=== PATIENT | male | born 1960 | race Caucasian/White ===

== ENCOUNTER → 2018-11-07 | Outpatient (CLI) | payer OTHER ==
[2018-11-07 10:36] LABS: Basophils % (A) 1 %; Eosinophils # (A) 0.1 k/uL (0-0.7); Eosinophils % (A) 2 %; HCT 40.6 % (39.0-53.0); HGB 12.8 gm/dL (13.0-17.5); Lymphocytes # (A) 1.3 k/uL (1.0-4.8); Lymphocytes % (A) 27 %; MCH 27.9 pg (25.0-35.0); MCHC 31.5 g/dL (31.0-37.0); MCV 88.6 fL (80.0-100.0); Mean Platelet Volume 8.8; Monocytes # (A) 0.3 k/uL (0-1.0); Monocytes % (A) 6 %; Neutrophils % (A) 63 %; Platelet Count 188 k/uL (150-450); RBC 4.59 m/uL (4.30-5.90); RDW 15.4 % (11.5-15.5); WBC 4.7 k/uL (3.8-10.6)
[2018-11-07 11:41] LABS: Erythrocyte Sedimentation Rate 30 mm/hr (0-15)
[2018-11-07 16:11] LABS: Cyclic Citrull Pep IgG Unit <0.5 U/mL; Cyclic Citrullinated Pep IgG NEGATIVE (NEGATIVE)
[2018-11-07 16:34] LABS: African American GFR (CKD) 115.7 (60.0-200.0); Anion Gap 7.5 mmol/L (4.00-12.00); BUN/Creat Ratio 22.5 Ratio (12.00-20.00); C Reactive Protein 1.1 mg/dL (0.0-0.8); Calcium 9.7 mg/dL (8.7-10.3); Carbon Dioxide 29.5 mmol/L (21.6-31.8); Potassium 4.9 mmol/L (3.5-5.5)
[2018-11-07 16:40] LABS: T4, Free (Free Thyroxine) 1.2 ng/dL (0.80-1.80)
[2018-11-07 17:03] LABS: Rheumatoid Factor <4 IU/mL (0-13)
[2018-11-08 10:53] LABS: Angiotensin-1 Converting Enz. 39 U/L (8-52)
[2018-11-08 12:56] LABS: HLA B27 NEGATIVE
== END | disposition home or self-care (01) ==
LOC: LABWHC1 09:13
PROVIDERS: ATTEND Orthopaedic Surgery
DX: M17.12 Unilateral primary osteoarthritis, left knee (principal); M25.462 Effusion, left knee; M25.562 Pain in left knee; M10.9 Gout, unspecified
CPT/HCPCS: 36415; 80048; 82164; 82306; 82550; 84439; 84443; 84450; 84460; 84550; 85025; 85652; 86038; 86140; 86200; 86431; 86812